=== PATIENT | female | born 1940 | race Caucasian/White ===

== ENCOUNTER 2016-10-07 11:51 | Outpatient (CLI) | payer MEDICARE, OTHER ==
[2016-10-07] MEDS ORDERED: IOPAMIDOL-300 100 ML VIAL IVP ONE (13:46)
== END 2016-10-07 11:52 | disposition home or self-care (01) ==
DX: I26.92 Saddle embolus of pulmonary artery without acute cor pulmonale (principal); Z79.01 Long term (current) use of anticoagulants; N28.9 Disorder of kidney and ureter, unspecified; E87.1 Hypo-osmolality and hyponatremia
CPT/HCPCS: 36415; 71275; 80048; Q9967

== ENCOUNTER 2017-11-12 08:20 | Outpatient (CLI) | payer MEDICARE, OTHER ==
[2017-11-12 10:24] LABS: CHOLESTEROL 198 mg/dL; HDL CHOLESTEROL 50 mg/dL; LDL CHOLESTEROL,CALCULATED 119 mg/dL; LDL/HDL RATIO 2.4 (<4.4); VLDL CHOLESTEROL 29 mg/dL
== END 2017-11-12 08:21 | disposition home or self-care (01) ==
LOC: LAB.F 08:20
PROVIDERS: ATTEND Family Medicine
DX: E78.5 Hyperlipidemia, unspecified (principal); E03.9 Hypothyroidism, unspecified
CPT/HCPCS: 36415; 80061; 83721; 84443

== ENCOUNTER → 2018-07-05 | Outpatient (CLI) | payer MEDICARE, OTHER ==
[2018-07-05 17:50] LABS: CALCIUM 9.8 mg/dL (8.5-10.3); CREATININE 1.2 mg/dL (0.4-1.0)
[2018-07-05 17:55] LABS: HGB - HEMOGLOBIN 14.3 g/dL (12.0-16.0); MEAN CORPUSCULAR HEMOGLOBIN 33.4 pg (27.0-31.0); MEAN CORPUSCULAR HGB CONC 34.2 g/dL (32.0-36.0); MEAN CORPUSCULAR VOLUME 97.8 fL (81.0-99.0); MEAN PLATELET VOLUME 8.8 fL (7.9-10.8); RED BLOOD COUNT 4.27 10^6/uL (4.20-5.40); RED CELL DISTRIBUTION WIDTH 13.1 % (12.0-15.0); WHITE BLOOD COUNT 6.6 x10^3/uL (4.8-10.8)
== END ==
LOC: LAB.F 08:00
PROVIDERS: ATTEND Internal Medicine
DX: I10 Essential (primary) hypertension (principal); E03.9 Hypothyroidism, unspecified; Z79.01 Long term (current) use of anticoagulants
CPT/HCPCS: 36415; 80048; 84443; 85027

== ENCOUNTER 2018-07-11 13:31 | Outpatient (CLI) | payer MEDICARE, OTHER ==
--- NOTE | 2018-07-12 13:19 | DEXA Report ---
Reason: ASYMOPTOMATIC MENOPAUSAL STATE Procedure Date: 07/11/2018 Accession Number: [id number] / [id number] Procedure: DEX - Dexa Spine and/or Hip CPT Code: FULL RESULT: EXAM: Dexa Spine and/or Hip DATE: 07/11/2018 2:01 PM CLINICAL HISTORY: ASYMOPTOMATIC MENOPAUSAL STATE TECHNIQUE: Dual energy x-ray absorptiometry (DXA) was performed on a [employer] System. Regions measured are the AP Spine, femoral neck, and if needed forearm. COMPARISON: None. In accordance with the International Society for Clinical Densitometry (ISCD) guidelines, data from previous exams may be reanalyzed using current recommendations and techniques. This is done to allow a more accurate basis for comparison with the current study. FINDINGS: The data for the lumbar spine is as follows: BMD (g/cm/cm) T-SCORE Z-SCORE REGION L1 0.886 -2.0 -0.7 L2 0.956 -2.0 -0.7 L3 1.095 -0.9 0.5 L4 1.105 -0.8 0.6 TOTAL 1.024 -1.3 0.1 NOTE: All evaluable vertebrae are used for classification The data for the hip is as follows: BMD (g/cm/cm) T-SCORE Z-SCORE REGION Neck 0.656 -2.7 -0.9 TOTAL 0.699 -2.4 -0.8 NOTE: The femoral neck or total proximal femur, whichever is lowest, is used for classification. IMPRESSION: THE WHO CLASSIFICATION BASED ON THE INTERNATIONAL REFERENCE STANDARD IS OSTEOPOROSIS. THE FRACTURE RISK IS HIGH. RECOMMENDATION: Patients with diagnosis of osteoporosis or osteopenia should have regular bone mineral density assessment. For those eligible for Medicare, routine testing is allowed once every 2 years. Testing frequency can be increased for patients who have rapidly progressing disease or for those who are receiving medical therapy to restore bone mass. COMMENT: World Health Organization (WHO) definitions for osteoporosis and osteopenia: NORMAL BMD: T-score at -1.0 or higher, fracture risk is low OSTEOPENIA BMD: T-score between -1.0 and -2.5, fracture risk is increased. OSTEOPOROSIS BMD: T-score at -2.5 or lower, fracture risk is high. National Osteoporosis Foundation recommends: 1. Obtain adequate dietary calcium (at least 1200 mg per day) and vitamin D (400-800 international units per day). 2. Participate, as appropriate, in regular weightbearing and muscle-strengthening exercise. 3. Avoid tobacco use and reduce alcohol and caffeine intake. 4. For more detailed information see the website at www.NOF.org.
== END 2018-07-11 13:32 | disposition home or self-care (01) ==
LOC: DI 13:31
PROVIDERS: ATTEND Internal Medicine
DX: M81.0 Age-related osteoporosis without current pathological fracture (principal)
CPT/HCPCS: 77080

== ENCOUNTER 2019-01-30 09:44 | Outpatient (CLI) | payer MEDICARE, OTHER ==
[2019-01-30 18:12] LABS: HGB - HEMOGLOBIN 13.8 g/dL (12.0-16.0); MEAN CORPUSCULAR HEMOGLOBIN 32.6 pg (27.0-31.0); MEAN CORPUSCULAR HGB CONC 33.4 g/dL (32.0-36.0); MEAN CORPUSCULAR VOLUME 97.7 fL (81.0-99.0); MEAN PLATELET VOLUME 8.5 fL (7.9-10.8); RED BLOOD COUNT 4.24 10^6/uL (4.20-5.40); RED CELL DISTRIBUTION WIDTH 13.9 % (12.0-15.0); WHITE BLOOD COUNT 5.2 x10^3/uL (4.8-10.8)
[2019-01-30 18:31] LABS: CALCIUM 9.7 mg/dL (8.5-10.3); CREATININE 1.2 mg/dL (0.4-1.0)
== END 2019-01-30 09:45 | disposition home or self-care (01) ==
LOC: LAB 09:44
PROVIDERS: ATTEND Internal Medicine
DX: I10 Essential (primary) hypertension (principal); E03.9 Hypothyroidism, unspecified; Z79.01 Long term (current) use of anticoagulants
CPT/HCPCS: 36415; 80048; 84443; 85027

== ENCOUNTER 2020-02-09 11:01 | Outpatient (CLI) | payer MEDICARE, OTHER ==
[2020-02-09 11:16] LABS: HGB - HEMOGLOBIN 14.7 g/dL (12.0-16.0); MEAN CORPUSCULAR HEMOGLOBIN 33.1 pg (27.0-31.0); MEAN CORPUSCULAR HGB CONC 33.7 g/dL (32.0-36.0); MEAN CORPUSCULAR VOLUME 98.2 fL (81.0-99.0); MEAN PLATELET VOLUME 9.7 fL (7.9-10.8); RED BLOOD COUNT 4.44 10^6/uL (4.20-5.40); WHITE BLOOD COUNT 6.6 x10^3/uL (4.8-10.8)
[2020-02-09 11:35] LABS: ALBUMIN 3.8 g/dL (3.2-5.5); ALKALINE PHOSPHATASE 88 IU/L (42-121); ALT ALANINE AMINOTRANSFERASE 16 IU/L (10-60); AST ASPARTATE AMINOTRANSFERASE 21 IU/L (10-42); BILIRUBIN,TOTAL 0.7 mg/dL (0.2-1.0); BUN - BLOOD UREA NITROGEN 23 mg/dL (6-20); CALCIUM 9.8 mg/dL (8.5-10.3); CARBON DIOXIDE - CO2 25 mmol/L (21-32); CHLORIDE 107 mmol/L (101-111); CHOL/HDL RATIO 3.1 (<4.4); CHOLESTEROL 196 mg/dL; CREATININE 1.3 mg/dL (0.4-1.0); GLUCOSE 96 mg/dL (70-100); HDL CHOLESTEROL 63 mg/dL; LDL CHOLESTEROL,CALCULATED 113 mg/dL; LDL/HDL RATIO 1.8 (<4.4); SODIUM 140 mmol/L (135-145); TOTAL PROTEIN 7.5 g/dL (6.7-8.2); VLDL CHOLESTEROL 20 mg/dL
== END 2020-02-09 11:02 | disposition home or self-care (01) ==
LOC: LAB 11:01
PROVIDERS: ATTEND Internal Medicine
DX: E78.5 Hyperlipidemia, unspecified (principal); E03.9 Hypothyroidism, unspecified; Z79.01 Long term (current) use of anticoagulants
CPT/HCPCS: 36415; 80053; 80061; 83721; 84443; 85027

== ENCOUNTER 2020-07-01 08:00 | Outpatient (CLI) | payer MEDICARE, OTHER ==
--- NOTE | 2020-07-01 18:11 | XRAY Report ---
PROCEDURE: Knee 3 View RT INDICATIONS: CONTUSION OF RIGHT KNEE TECHNIQUE: 4 views of the right knee. COMPARISON: None. FINDINGS: Bones: Moderately displaced fracture of the mid/inferior patella. No suspicious bony lesions. Mild t ricompartmental periarticular osteophyte formation. Soft tissues: Moderate joint effusion. No suspicious soft tissue calcifications. IMPRESSION: Inferior patellar fracture. Moderate knee joint effusion. Reviewed by: Barry Wheeler MD on 07/01/2020 6:09 PM PDT Approved by: Barry Wheeler MD on 07/01/2020 6:09 PM PDT Station ID: [id number]
== END 2020-07-01 23:59 | disposition home or self-care (01) ==
LOC: DI.S 08:00
PROVIDERS: ATTEND Physician Assistant Medical
DX: S80.01XA Contusion of right knee, initial encounter (principal); S82.091A Other fracture of right patella, initial encounter for closed fracture; M25.461 Effusion, right knee

== ENCOUNTER 2020-07-12 15:03 | Outpatient (CLI) | payer MEDICARE, OTHER ==
--- NOTE | 2020-07-12 15:08 | XRAY Report ---
PROCEDURE: Knee 2 View RT INDICATIONS: RIGHT PATELLA FRACTURE TECHNIQUE: 2 views of the right knee(s) were acquired. COMPARISON: None. FINDINGS: Bones: Patellar fracture noted, with approximately 5 mm diastases/distraction. No suspicious bony le sions. Scattered subchondral sclerosis and spurring. Chronic appearing small calcification projects adjacent to the medial tibial plateau. IMPRESSION: Patellar fracture Reviewed by: Moe Domingo MD on 07/12/2020 3:06 PM PDT Approved by: Moe Domingo MD on 07/12/2020 3:06 PM PDT Station ID: [id number]
== END 2020-07-12 23:59 | disposition home or self-care (01) ==
LOC: DI.WCP 15:03
PROVIDERS: ATTEND Orthopaedic Surgery
DX: S82.001A Unspecified fracture of right patella, initial encounter for closed fracture (principal)

== ENCOUNTER 2020-07-22 08:00 | Outpatient (CLI) | payer MEDICARE, OTHER ==
--- NOTE | 2020-07-22 11:14 | XRAY Report ---
PROCEDURE: Knee 2 View RT INDICATIONS: R PATELLA FX TECHNIQUE: 2 views of the right knee(s) were acquired. COMPARISON: 07/12/2020. FINDINGS: Bones: Comminuted fracture of the patella is redemonstrated. Soft tissues: No joint effusion. No suspicious soft tissue calcifications. IMPRESSION: Comminuted right patellar fracture. Reviewed by: Juhi Lui MD, PhD on 07/22/2020 11:12 AM PDT Approved by: Juhi Lui MD, PhD on 07/22/2020 11:12 AM PDT Station ID: [id number]
== END 2020-07-22 23:59 | disposition home or self-care (01) ==
LOC: DI.WCP 08:00
PROVIDERS: ATTEND Orthopaedic Surgery
DX: S82.091A Other fracture of right patella, initial encounter for closed fracture (principal)

== ENCOUNTER 2020-08-12 07:00 | Outpatient (CLI) | payer MEDICARE, OTHER ==
--- NOTE | 2020-08-12 16:38 | XRAY Report ---
PROCEDURE: Knee 2 View RT INDICATIONS: FX OF R PATELLA TECHNIQUE: 2 views of the right knee(s) were acquired. COMPARISON: X-ray knee 07/12/2020, 07/22/2020 FINDINGS: Bones: There is a comminuted fracture of the patella demonstrating minimal interval healing. No aviles e in alignment. No suspicious bony lesions. Soft tissues: Prominent joint effusion. No suspicious soft tissue calcifications. IMPRESSION: Comminuted mid patellar fracture with stable alignment. Reviewed by: Michelle Gomez MD on 08/12/2020 4:37 PM PST Approved by: Michelle Gomez MD on 08/12/2020 4:37 PM PST Station ID: [id number]
== END 2020-08-12 23:59 | disposition home or self-care (01) ==
LOC: DI.N 07:00
PROVIDERS: ATTEND Orthopaedic Surgery
DX: S82.001D Unspecified fracture of right patella, subsequent encounter for closed fracture with routine healing (principal)

== ENCOUNTER 2020-12-19 11:48 | Outpatient (CLI) | payer MEDICARE, OTHER ==
[2020-12-19 14:24] LABS: BASOPHILS % (AUTO) 0.7 %; EOSINOPHILS # (AUTO) 0.1 10^3/uL (0.0-0.7); EOSINOPHILS % (AUTO) 1.8 %; HCT - HEMATOCRIT 41.9 % (37.0-47.0); HGB - HEMOGLOBIN 14.3 g/dL (12.0-16.0); LYMPHOCYTES # (AUTO) 1.5 10^3/uL (1.5-3.5); LYMPHOCYTES % (AUTO) 25.5 %; MEAN CORPUSCULAR HEMOGLOBIN 31.7 pg (27.0-31.0); MEAN CORPUSCULAR HGB CONC 34.1 g/dL (32.0-36.0); MEAN CORPUSCULAR VOLUME 92.9 fL (81.0-99.0); MEAN PLATELET VOLUME 10.4 fL (7.9-10.8); MONOCYTES # (AUTO) 0.7 10^3/uL (0.0-1.0); MONOCYTES % (AUTO) 12.3 %; NEUTROPHILS # (AUTO) 3.4 10^3/uL (1.5-6.6); NEUTROPHILS % (AUTO) 59.3 %; PLT - PLATELET COUNT 260 10^3/uL (130-450); RED BLOOD COUNT 4.51 10^6/uL (4.20-5.40); RED CELL DISTRIBUTION WIDTH 12.5 % (12.0-15.0); WHITE BLOOD COUNT 5.7 x10^3/uL (4.8-10.8)
[2020-12-19 15:24] LABS: ALBUMIN 3.8 g/dL (3.2-5.5); ALBUMIN/GLOBULIN RATIO 1.1 (1.0-2.2); BILIRUBIN,TOTAL 0.8 mg/dL (0.2-1.0); CREATININE 1.1 mg/dL (0.4-1.0); POTASSIUM 3.7 mmol/L (3.5-5.0); TOTAL PROTEIN 7.4 g/dL (6.7-8.2)
[2020-12-19 15:52] LABS: THYROID STIMULATING HORMONE 5.08 uIU/mL (0.34-5.60)
== END 2020-12-19 11:49 | disposition home or self-care (01) ==
LOC: LAB.S 11:48
PROVIDERS: ATTEND Internal Medicine
DX: N18.9 Chronic kidney disease, unspecified (principal); E03.9 Hypothyroidism, unspecified
CPT/HCPCS: 36415; 80053; 84443; 85025

== ENCOUNTER 2021-01-29 08:21 | Outpatient (CLI) | payer MEDICARE, OTHER ==
[2021-01-29 15:33] LABS: ALBUMIN 3.6 g/dL (3.2-5.5); BILIRUBIN,TOTAL 0.9 mg/dL (0.2-1.0); CALCIUM 10.1 mg/dL (8.5-10.3); CREATININE 1.5 mg/dL (0.4-1.0); POTASSIUM 3.7 mmol/L (3.5-5.0); TOTAL PROTEIN 7.3 g/dL (6.7-8.2)
[2021-01-29 15:50] LABS: THYROID STIMULATING HORMONE 3.9 uIU/mL (0.34-5.60)
[2021-01-29 18:29] LABS: BASOPHILS # (AUTO) 0.1 10^3/uL (0.0-0.1); BASOPHILS % (AUTO) 1.5 %; EOSINOPHILS # (AUTO) 0.3 10^3/uL (0.0-0.7); EOSINOPHILS % (AUTO) 4.9 %; HCT - HEMATOCRIT 42.8 % (37.0-47.0); HGB - HEMOGLOBIN 14.4 g/dL (12.0-16.0); LYMPHOCYTES # (AUTO) 1.8 10^3/uL (1.5-3.5); LYMPHOCYTES % (AUTO) 32.8 %; MEAN CORPUSCULAR HEMOGLOBIN 32.4 pg (27.0-31.0); MEAN CORPUSCULAR HGB CONC 33.6 g/dL (32.0-36.0); MEAN CORPUSCULAR VOLUME 96.2 fL (81.0-99.0); MEAN PLATELET VOLUME 10.8 fL (7.9-10.8); MONOCYTES # (AUTO) 0.7 10^3/uL (0.0-1.0); NEUTROPHILS # (AUTO) 2.7 10^3/uL (1.5-6.6); NEUTROPHILS % (AUTO) 48.6 %; PLT - PLATELET COUNT 251 10^3/uL (130-450); RED BLOOD COUNT 4.45 10^6/uL (4.20-5.40); RED CELL DISTRIBUTION WIDTH 13.1 % (12.0-15.0); WHITE BLOOD COUNT 5.5 x10^3/uL (4.8-10.8)
== END 2021-01-29 08:22 | disposition home or self-care (01) ==
LOC: LAB.S 08:21
PROVIDERS: ATTEND Internal Medicine
DX: E87.1 Hypo-osmolality and hyponatremia (principal); E03.9 Hypothyroidism, unspecified; I10 Essential (primary) hypertension
CPT/HCPCS: 36415; 80053; 84443; 85025

== ENCOUNTER 2021-04-30 08:47 | Outpatient (CLI) | payer MEDICARE, OTHER ==
[2021-04-30 14:58] LABS: BASOPHILS % (AUTO) 0.8 %; EOSINOPHILS # (AUTO) 0.2 10^3/uL (0.0-0.7); EOSINOPHILS % (AUTO) 4.5 %; HCT - HEMATOCRIT 43.6 % (37.0-47.0); HGB - HEMOGLOBIN 14.4 g/dL (12.0-16.0); LYMPHOCYTES # (AUTO) 1.7 10^3/uL (1.5-3.5); LYMPHOCYTES % (AUTO) 31.9 %; MEAN CORPUSCULAR HEMOGLOBIN 33.3 pg (27.0-31.0); MEAN CORPUSCULAR VOLUME 100.7 fL (81.0-99.0); MEAN PLATELET VOLUME 10.8 fL (7.9-10.8); MONOCYTES # (AUTO) 0.7 10^3/uL (0.0-1.0); MONOCYTES % (AUTO) 12.5 %; NEUTROPHILS # (AUTO) 2.7 10^3/uL (1.5-6.6); NEUTROPHILS % (AUTO) 50.1 %; PLT - PLATELET COUNT 278 10^3/uL (130-450); RED BLOOD COUNT 4.33 10^6/uL (4.20-5.40); RED CELL DISTRIBUTION WIDTH 13.3 % (12.0-15.0); WHITE BLOOD COUNT 5.3 x10^3/uL (4.8-10.8)
[2021-04-30 15:19] LABS: CALCIUM 10.3 mg/dL (8.5-10.3); CREATININE 1.5 mg/dL (0.4-1.0); POTASSIUM 3.6 mmol/L (3.5-5.0)
[2021-04-30 15:37] LABS: THYROID STIMULATING HORMONE 5.19 uIU/mL (0.34-5.60)
[2021-04-30 15:41] LABS: ALBUMIN 3.8 g/dL (3.2-5.5); ALBUMIN/GLOBULIN RATIO 1.1 (1.0-2.2); BILIRUBIN,TOTAL 1.1 mg/dL (0.2-1.0); TOTAL PROTEIN 7.4 g/dL (6.7-8.2)
[2021-04-30 20:03] LABS: BILIRUBIN,URINE NEGATIVE (NEGATIVE); GLUCOSE, URINE (UA) NEGATIVE (NEGATIVE); KETONES,URINE (UA) NEGATIVE (NEGATIVE); LEUKOCYTE ESTERASE, URINE NEGATIVE (NEGATIVE); NITRITE,URINE NEGATIVE (NEGATIVE); OCCULT BLOOD,URINE NEGATIVE (NEGATIVE); PH,URINE 5.5 PH (5.0-7.5); PROTEIN,URINE NEGATIVE (NEGATIVE); UROBILINOGEN,URINE 0.2 (NORMAL) E.U./dL (NORMAL)
[2021-04-30 20:09] LABS: CLARITY,URINE CLEAR (CLEAR)
[2021-04-30 20:26] LABS: BACTERIA,URINE Rare /HPF (None Seen); RBC,URINE None Seen /HPF (0-5); SQUAMOUS EPITHELIAL CELL,UR FEW Squamous (<= Few); WBC,URINE 0-3 /HPF (0-5)
== END 2021-04-30 08:48 | disposition home or self-care (01) ==
LOC: LAB.S 08:47
PROVIDERS: ATTEND Internal Medicine
DX: I12.9 Hypertensive chronic kidney disease with stage 1 through stage 4 chronic kidney disease, or unspecified chronic kidney disease (principal); N18.9 Chronic kidney disease, unspecified; E03.9 Hypothyroidism, unspecified
CPT/HCPCS: 36415; 80053; 81001; 84443; 85025; 87086

== ENCOUNTER 2021-11-18 08:44 | Outpatient (CLI) | payer MEDICARE, OTHER ==
[2021-11-18 15:13] LABS: BASOPHILS # (AUTO) 0.1 10^3/uL (0.0-0.1); EOSINOPHILS # (AUTO) 0.2 10^3/uL (0.0-0.7); HCT - HEMATOCRIT 42.8 % (37.0-47.0); HGB - HEMOGLOBIN 14.5 g/dL (12.0-16.0); LYMPHOCYTES # (AUTO) 2.2 10^3/uL (1.5-3.5); LYMPHOCYTES % (AUTO) 37.2 %; MEAN CORPUSCULAR HEMOGLOBIN 32.5 pg (27.0-31.0); MEAN CORPUSCULAR HGB CONC 33.9 g/dL (32.0-36.0); MEAN PLATELET VOLUME 10.9 fL (7.9-10.8); MONOCYTES # (AUTO) 0.6 10^3/uL (0.0-1.0); MONOCYTES % (AUTO) 10.7 %; NEUTROPHILS # (AUTO) 2.8 10^3/uL (1.5-6.6); NEUTROPHILS % (AUTO) 46.9 %; PLT - PLATELET COUNT 265 10^3/uL (130-450); RED BLOOD COUNT 4.46 10^6/uL (4.20-5.40); RED CELL DISTRIBUTION WIDTH 13.3 % (12.0-15.0)
[2021-11-18 15:36] LABS: ALBUMIN 3.7 g/dL (3.2-5.5); ALKALINE PHOSPHATASE 76 IU/L (42-121); ALT ALANINE AMINOTRANSFERASE 18 IU/L (10-60); AST ASPARTATE AMINOTRANSFERASE 25 IU/L (10-42); BILIRUBIN,TOTAL 0.9 mg/dL (0.2-1.0); BUN - BLOOD UREA NITROGEN 23 mg/dL (6-20); CALCIUM 10.3 mg/dL (8.5-10.3); CARBON DIOXIDE - CO2 28 mmol/L (21-32); CHLORIDE 100 mmol/L (101-111); CHOL/HDL RATIO 3.7 (<4.4); CHOLESTEROL 237 mg/dL; CREATININE 1.5 mg/dL (0.4-1.0); GFR - MDRD 33 (>89); GLUCOSE 95 mg/dL (70-100); HDL CHOLESTEROL 64 mg/dL; LDL CHOLESTEROL,CALCULATED 144 mg/dL; LDL/HDL RATIO 2.3 (<4.4); POTASSIUM 3.6 mmol/L (3.5-5.0); SODIUM 139 mmol/L (135-145); TOTAL PROTEIN 7.5 g/dL (6.7-8.2); TRIGLYCERIDES 146 mg/dL; VLDL CHOLESTEROL 29 mg/dL
[2021-11-18 15:43] LABS: THYROID STIMULATING HORMONE 3.16 uIU/mL (0.34-5.60)
== END 2021-11-18 08:45 | disposition home or self-care (01) ==
LOC: LAB.S 08:44
PROVIDERS: ATTEND Internal Medicine
DX: N28.9 Disorder of kidney and ureter, unspecified (principal); E78.5 Hyperlipidemia, unspecified; E03.9 Hypothyroidism, unspecified; I10 Essential (primary) hypertension
CPT/HCPCS: 36415; 80053; 80061; 83721; 84443; 85025

== ENCOUNTER 2021-12-30 09:29 | Outpatient (CLI) | payer MEDICARE, OTHER ==
--- NOTE | 2021-12-30 09:45 | CARDIAC PROCEDURE NOTE ---
Stress Test Report Service Date: 12/30/21 Service Time: 09:30 Ordering Provider: Phong Ibanez Indication for Test: Assess for an ischemic contribution to exertional shortness of breath. Significant Medical History: Mirian is referred for exercise stress myocardial perfusion imaging today to assess her gradually increasing exertional dyspnea. In addition to a long history of treated hypertension she had a major pulmonary embolus ("saddle") about 4 years ago, for which a source was never identified and for which she remains on lifelong anticoagulation with Xarelto. As best I can tell, she had symptoms with this event that gradually abated, however within the past approximately 1 year she has noted that her toleration of physical exertion has lessened. She gives the example that she can walk up a single flight of stairs in her home at "normal" speed, but has to rest afterward. She has a 70 pound dog that she walks in her neighborhood, mostly on flat ground and mostly rather slowly given his age. She says that to tolerate certain routine household tasks she must take intermittent breaks to collect herself and catch her breath. She denies any associated chest pain/pressure or discomfort as well as nocturnal dyspnea. She does comment on having some nocturnal sciatica. She takes amlodipine and HCTZ/triamterene in the mornings, believes her BPs are generally at the desired level and took her meds this morning, per our instruction. Cardiac Risk Factors: Positive for hypertension (treated for at least 15 years) and family history of coronary heart disease in her father ([place] at age 65); no known history of hyperlipidemia, diabetes nor history of tobacco smoking. Type of Stress Test: ETT with Myocardial Perfusion Imaging Procedure: -Exercise Treadmill Test- After signing informed consent, the patient underwent rest SPECT imaging and thenb performed treadmill exercise using a Modified Kelechi protocol. The patient exercised for 2 minutes 35 seconds and achieved a peak heart rate of 124 (89 percent predicted maximum heart rate for age), and an estimated workload of 2.5 METS. The test was terminated due to progressively increasing, and limiting, shortness of breath. Resting heart rate: 75 Peak heart rate: 124 Normal response to exercise. Resting BP: 161/77 Peak BP: 216/96 Hypertensive at rest with physiologic increase of systolic BP and abnormal increase in diastolic BP with exercise. HR x SBP double product increase of 2.2-fold. Rhythm during exercise: Sinus rhythm throughout, with rare isolated PACs. Symptoms: Marked and limiting dyspnea in mid-late stage 1, without other cardiovascular symptoms. EKG at rest showed normal sinus rhythm, normal in all aspects. EKG at peak stress showed no ischemia by EKG criteria. In Recovery HR and BP returned normally to baseline levels. Nuclear imaging was performed at rest and with stress and will be reported separately. I, Rao Rodriguez MD, was present throughout this treadmill stress study and supervised it in its entirety. Summary: 1) Severely reduced exercise tolerance for age and sex as evidenced by CASSANDRA of 48%. 2) Normal resting EKG. 3) Adequate level of exercise was probably achieved on this treadmill stress test, based on increase in HR and Rate-Pressure product. 4) Normal systolic BP response to exercise. 5) No ischemic changes by EKG criteria were seen at peak stress. 6) Analysis of gated nuclear images reveals normal left ventricular size and systolic function; SPECT analysis reveals moderatesized, mildmoderately severe (in intensity) fixed defects in the anterior septum and lateral anterior wall with supine imaging, not seen with prone imaging, interpreted by Radiologist as suggesting attenuation artifacts. See separate report for more detail. Per my interpretation the lateral anterior defect is more evident with stress and overall, coronary artery disease, possibly involving two vessels, cannot be excluded. CONCLUSIONS: 1) Abnormal exercise stress myocardial perfusion imaging study using the modified Kelechi protocol, with progressive and ultimately severe dyspnea in stage I. 2) Probably adequate hemodynamic stress, with normal EKG response but equivocal SPECT imaging results (as above). 3) Recommend that patient undergo a diagnostic echocardiogram to exclude other potential cardiovascular causes of severe exercise limitation, such as pulmonary hypertension, occult mitral stenosis or severe diastolic dysfunction, for example. 4) We also recommend that due to markedly reduced exercise tolerance and possibility of CAD by SPECT imaging, patient be formally evaluated by a Food Products Sales Representative. I reviewed my concerns and recommendations by phone with the patient on 01/01/22 and we will send her a CD with SPECT images to take with her to that evaluation. 5) I continue to attempt to speak with a provider at [facility] who will assume her care following Dr Ibanez's departure.
--- NOTE | 2021-12-30 14:15 | Nuclear Medicine Report ---
PROCEDURE: Rest and exercise myocardial perfusion SPECT with gated imaging and ejection fraction INDICATIONS: MULTIPLE THYROID NODULES RADIOPHARMACEUTICAL: 12.6 mCi Tc-99m Myoview IV at rest and 37.4 mCi Tc-99m Myoview IV at peak exerc ise. Kcx-gma-htiyzqps was performed. TECHNIQUE: Radiopharmaceutical was injected at peak stress test, and also at rest. SPECT images wer e obtained. SPECT myocardial perfusion images were displayed in short axis, horizontal long axis, an d vertical long axis views. Gated images were reviewed using [employer] software. COMPARISON: None available. FINDINGS: Raw data: There is good myocardial labeling by radiotracer. No significant motion artifacts. Lung- to-heart ratio is 0.43 (normal is less than 0.46 for tetrafosmin tracer). Left ventricle function: Gated images demonstrate normal left ventricle wall thickening. No segment al wall motion abnormality. No transient ischemic dilation; TID is 1.06 (normal less than 1.30). Th e left ventricle resting end-diastolic volume is 63 mL. Left ventricle stress ejection fraction is > 70%; normal values are above 45%. Myocardial perfusion: There are moderate size, ssuh-xx-ujyawwwpry severe, fixed defect in the anteri or septum and lateral anterior wall. On prone imaging, both defects are resolved suggesting attenuati on artifact. There is otherwise normal distribution of activity in the left and right ventricular vahid cardium. No reversible perfusion defects to suggest myocardial ischemia. IMPRESSION: 1. Probably normal myocardial perfusion images. There are moderate size, rldm-em-guprkljdjb severe, f ixed defect in the anterior septum and lateral anterior wall. On prone imaging, both defects are reso lved suggesting attenuation artifacts. 2. No reversible perfusion defects to suggest myocardial ischemia. 3. Normal left ventricular volume and systolic function. 4. Pleae correlate with stress EKG result. PQRS ATTESTATIONS: Measure 322 - Is this imaging test primarily performed on a low-risk surgery patient for preoperative evaluation within 30 days preceding their low-risk non-cardiac surgery? Low-risk surgery is defined as cardiac or myocardial infarction less than 1%, including (but not limited to) endoscopic pr ocedures, superficial procedures, cataract surgery, and excisional breast surgery: Answer: No Measure 323 - Is this imaging test performed primarily for the monitoring of an asymptomatic patient who had percutaneous coronary intervention on the visit date or within 2 years of the visit date? An swer: No Measure 324 - Is this imaging test performed primarily for the initial detection and risk assessment on an asymptomatic, low coronary heart disease patient? Low CHD risk definition = clinicians should consider the maximum number of available patient factors used to estimate risk based on [place] (A TP III criteria), typically age, gender, diabetes, smoking status, and use of blood pressure medicati on, and integrate age appropriate estimates for missing elements, such as LDL or standard blood press ure. Answer: No Reviewed by: Camille Lange MD on 12/30/2021 2:14 PM PDT Approved by: Camille Lange MD on 12/30/2021 2:14 PM PDT Station ID: [id number]
== END 2021-12-30 09:30 | disposition home or self-care (01) ==
LOC: DI 09:29
PROVIDERS: ATTEND Internal Medicine
DX: R06.02 Shortness of breath (principal); I10 Essential (primary) hypertension; Z86.711 Personal history of pulmonary embolism; Z79.01 Long term (current) use of anticoagulants
CPT/HCPCS: 78452; 93017; A9500

== ENCOUNTER 2022-04-16 08:52 | Outpatient (CLI) | payer MEDICARE, OTHER | END 2022-04-16 08:53 | disposition home or self-care (01) | LOC: DI 08:52 | PROVIDERS: ATTEND Internal Medicine Cardiovascular Disease | DX: R06.00 Dyspnea, unspecified (principal) | CPT/HCPCS: 93306 ==

== ENCOUNTER 2023-07-14 08:20 | Outpatient (CLI) | payer MEDICARE, OTHER | END 2023-07-14 08:21 | disposition home or self-care (01) | LOC: LAB.S 08:20 | PROVIDERS: ATTEND Registered Nurse | DX: G25.81 Restless legs syndrome (principal) | CPT/HCPCS: 36415; 82607; 82728; 83540; 84466 ==

== ENCOUNTER 2023-10-04 10:07 | Outpatient (CLI) | payer MEDICARE, OTHER ==
[2023-10-04 17:20] LABS: CALCIUM 10.3 mg/dL (8.5-10.3); CREATININE 1.4 mg/dL (0.6-1.3); POTASSIUM 4.2 mmol/L (3.5-4.5)
[2023-10-04 17:27] LABS: CREATININE,URINE 126.2 mg/dL; MICROALBUM/CREATININE RATIO,UR 41.2 ug/mg (<30.0); MICROALBUMIN,URINE 5.2 mg/dL
== END 2023-10-04 10:08 | disposition home or self-care (01) ==
LOC: LAB.S 10:07
PROVIDERS: ATTEND Registered Nurse
DX: N18.9 Chronic kidney disease, unspecified (principal)
CPT/HCPCS: 36415; 80048; 82043; 82570